=== PATIENT | male | born 1950 | race Caucasian/White ===

== ENCOUNTER 2020-01-21 23:53 | Inpatient (IN) | payer MEDICARE ==
[2020-01-22 00:50] LABS: #Eosinphils 0.1 thou/uL (0.0-0.7); #Lymphocytes 0.8 thou/uL (1.20-3.40); #Monocytes 0.5 thou/uL (0.11-0.59); #Neutrophils 5.3 thou/uL (1.40-6.50); %Basophils 0.2 % (0.0-1.0); %Eosinophils 1.4 % (0.0-10.0); %Lymphocytes 11.6 % (21.0-51.0); %Monocytes 7.7 % (0.0-10.0); %Neutrophils 79.1 % (42.0-75.0); Hemoglobin 12.7 g/dL (14.0-18.0); Mean Corpuscular HGB CONC 34.5 g/dL (32.0-36.0); Mean Corpuscular Hemoglobin 32.7 pg (27.0-31.0); Mean Corpuscular Volume 94.9 fL (78.0-98.0); Mean Platelet Volume 6.6 fL (7.4-10.4); Platelet Count 282 thou/uL (130-400); RBC Distribution Width 11.1 % (11.5-14.5); Red Blood Cell (RBC) Count 3.88 mill/uL (4.70-6.10); White Blood Cell (WBC) Count 6.7 thou/uL (4.8-10.8)
[2020-01-22 01:07] LABS: ALT (SGPT) 174 U/L (8-55); AST (SGOT) 182 U/L (5-34); Albumin 3.1 g/dL (3.4-4.8); Alkaline Phosphatase 64 U/L (40-110); Anion Gap 15 mmol/L (10-20); BUN (Urea Nitrogen) 17 mg/dL (8.4-25.7); Calc. Creatinine Clearance 0 mL/min (70-130); Calcium 8.4 mg/dL (7.8-10.44); Carbon Dioxide 27 mmol/L (23-31); Chloride 92 mmol/L (98-107); Globulin 3.3 g/dL (2.4-3.5); Glucose 119 mg/dL (80-115); Potassium 3.3 mmol/L (3.5-5.1); Protein, Total 6.4 g/dL (5.8-8.1); Sodium 131 mmol/L (136-145)
[2020-01-22 03:05] VITALS: BMI 26.3
--- NOTE | 2020-01-22 08:37 | RAD ---
EXAM: Chest one view: HISTORY: Covid positive, shortness of breath, low oxygen saturation at home COMPARISON: None FINDINGS: Heart size: Within normal limits. Lungs: Patchy interstitial alveolar and groundglass opacity changes particularly in the peripheral as pect of the right and left lung slightly more prominent on the right side evidence for bilateral Covid pneumonia. No pleural effusion. IMPRESSION: Evidence for bilateral Covid pneumonia.
[2020-01-22] MEDS ORDERED: FLU VACC QS2020-21(65YR UP)/PF 240 MCG/0.7 ML SYRINGE IM ONE (09:00)
[2020-01-22] MEDS ORDERED: Acetaminophen 325 MG TAB PO PRN ×2 (09:09→09:17)
[2020-01-22] MEDS ORDERED: Senokot S 8.6-50 MG TAB PO PRN (09:11)
[2020-01-22] MEDS ORDERED: Calcium Carbonate 500 MG ChewTAB PO PRN (09:11)
[2020-01-22] MEDS ORDERED: Bisacodyl 10 MG SUPP PR PRN (09:11)
[2020-01-22] MEDS ORDERED: Dexamethasone 4 mg/ml Vial SLOW IVP SCH (09:15)
[2020-01-22] MEDS ORDERED: Enoxaparin Sodium 40 MG/0.4 ML SYRINGE SC SCH (09:15)
--- NOTE | 2020-01-22 09:44 | PDOC.HHP ---
Hospitalist HPI - History of Present Illness Shortness of breath History of Present Illness: Patient is a 69-year-old male with COVID-19 diagnosed on 01/09 presented to the emergency room with worsening shortness of breath and low oxygen saturation. Over the last 2 weeks patient developed gradual worsening shortness of breath along with flulike symptoms. His symptom onset was on 01/07. He felt generally weak with fatigue, runny nose along with cough. Work-up was productive of scanty thick mucus. He also had myalgias along with fever and chills. He was evaluated at urgent care on 01/09 and was diagnosed with COVID-19. Over the last 3 to 4 days shortness of breath has been worsening. His O2 saturations was in 80s for which he presented to the emergency room. He denies any wheezing, chest pain, palpitations or syncope. He denies any recent travel or immobilization. No history of malignancy. In the emergency room his initial vital signs showed temperature 99.9, respiration 20, pulse rate of 80 with blood pressure 127/75 and O2 saturation of 86% on room air. He was placed on O2 supplementation. PAST MEDICAL HISTORY: Hypertension, insomnia, eczema PAST SURGICAL HISTORY: Hernia repair, colonoscopy ALLERGIES: No known drug allergies SOCIAL HISTORY: Currently lives at home with his family. Full code. Makes his own decision with the help of his family. Drinks alcohol socially. Denies any smoking or drug use FAMILY HISTORY: Father with lung cancer. Hospitalist ROS - Review of Systems Constitutional: reports: fever, chills, weakness, malaise Respiratory: reports: cough, shortness of breath, SOB with excertion, sputum. denies: dry, hemoptysis, pleuritic pain, wheezing, other Gastrointestinal: reports: diarrhea. denies: nausea, vomiting, abdominal pain, constipation, melena, hematochezia, other Genitourinary: denies: dysuria, frequency, incontinence, hematuria, retention, other Musculoskeletal: denies: neck pain, shoulder pain, arm pain, back pain, hand pain, leg pain, foot pain, other All other systems reviewed; all pertinent +/- noted in HPI/Subj - Medication Medications: Medication Instructions Recorded Confirmed Type Irbesartan 300 mg PO DAILY 12/18/15 01/22/20 History Aspirin [Ecotrin Regular Strength] 81 mg PO DAILY #30 tab 12/19/15 01/22/20 Rx Amlodipine Besylate [amLODIPine 5 mg PO DAILY 01/22/20 01/22/20 History Besylate] Bifidobacterium Infantis [Align] 4 mg PO QAM 01/22/20 01/22/20 History Eszopiclone 3 mg PO QAM 01/22/20 01/22/20 History Hydrochlorothiazide 25 mg PO DAILY 01/22/20 01/22/20 History Magnesium Oxide [Magnesium] 500 mg PO QAM 01/22/20 01/22/20 History [place]-3 Fatty Acids/Fish Oil 3,000 mg PO QAM 01/22/20 01/22/20 History [[place] 3 Fish Oil Softgel] Zinc 50 mg PO QAM 01/22/20 01/22/20 History - Exam General Appearance: ill appearing Eye: PERRL, anicteric sclera ENT: normocephalic atraumatic Neck: supple, symmetric, no JVD Heart: RRR, no gallops, no rubs, normal peripheral pulses Respiratory: no wheezes, normal chest expansion, rales, rhonchi, tachypneic Gastrointestinal: soft, normal bowel sounds, no guarding, no rigidity Extremities: no cyanosis, no clubbing Skin: normal turgor, no lesions Neurological: no new deficit Musculoskeletal: normal tone Psychiatric: normal affect, A&O x 3 Hospitalist Results - Labs Result Diagrams: 01/22/20 00:39 01/22/20 00:39 Lab results: WBC 6.7 thou/uL (4.8-10.8) 01/22/20 00:39 Hgb 12.7 g/dL (14.0-18.0) L 01/22/20 00:39 Hct 36.9 % (42.0-52.0) L 01/22/20 00:39 MCV 94.9 fL (78.0-98.0) 01/22/20 00:39 Plt Count 282 thou/uL (130-400) 01/22/20 00:39 Neutrophils % 79.1 % (42.0-75.0) H 01/22/20 00:39 Sodium 131 mmol/L (136-145) L 01/22/20 00:39 Potassium 3.3 mmol/L (3.5-5.1) L 01/22/20 00:39 Chloride 92 mmol/L (98-107) L 01/22/20 00:39 Carbon Dioxide 27 mmol/L (23-31) 01/22/20 00:39 BUN 17 mg/dL (8.4-25.7) 01/22/20 00:39 Creatinine 0.95 mg/dL (0.7-1.3) 12 00:39 Glucose 119 mg/dL (80-115) H 01/22/20 00:39 Calcium 8.4 mg/dL (7.8-10.44) 01/22/20 00:39 Total Bilirubin 1.0 mg/dL (0.2-1.2) 01/22/20 00:39 AST 182 U/L (5-34) H 01/22/20 00:39 ALT 174 U/L (8-55) H 01/22/20 00:39 Alkaline Phosphatase 64 U/L (40-110) 01/22/20 00:39 Troponin I 0.015 ng/mL (< 0.028) 01/22/20 00:39 Serum Total Protein 6.4 g/dL (5.8-8.1) 01/22/20 00:39 Albumin 3.1 g/dL (3.4-4.8) L 01/22/20 00:39 - EKG Interpretation EKG: Sinus rhythmreviewed by me - Radiology Interpretation Chest x-ray Status: image reviewed by me Additional Comment: Bilateral infiltrates consistent with COVID-19 pneumonia Hospitalist H&P A/P - Plan Plan: Acute hypoxic respiratory failure due to COVID-19 pneumoniasymptom onset 01/07 (patient positive on 01/09) Generalized weakness Hypertension Abnormal LFTs Hypokalemia/hyponatremia CKD stage II Chronic anemia probably due to nutritional deficiency Chronic insomnia Plan: Patient is currently admitted to medical floor. We will start him on O2 supplementation with IV Decadron 6 mg daily. Bronchodilators. Isolation for COVID-19. DVT and GI prophylaxis. Check inflammatory markers. Resume amlodipine. Replace potassium. Hold diuretics. Will discuss with infectious disease. A.m. labs. Monitor LFTs. Add Ensure.
[2020-01-22] MEDS ORDERED: Albuterol 200 PUFF (6.7GM INHALER) INH PRN (09:57)
[2020-01-22 10:15] LABS: Phosphorus 2.7 mg/dL (2.3-4.7)
[2020-01-22 10:16] LABS: ALT (SGPT) 182 U/L (8-55); AST (SGOT) 162 U/L (5-34); Albumin 3.2 g/dL (3.4-4.8); Alkaline Phosphatase 71 U/L (40-110); Bilirubin, Direct 0.5 mg/dL (0.1-0.3); Protein, Total 6.6 g/dL (5.8-8.1)
[2020-01-22 10:17] LABS: CRP (Inflammatory) 22.14 mg/dL (= or < 0.5); Magnesium 2.5 mg/dL (1.6-2.6)
[2020-01-22 10:21] LABS: Troponin I 0.025 ng/mL (< 0.028)
[2020-01-22] MEDS ORDERED: Loperamide HCl 2 MG CAP PO PRN (10:21)
[2020-01-22] MEDS: Albuterol 200 PUFF (6.7GM INHALER) INH SCH ×4 (10:53→22:38)
[2020-01-22] MEDS: Potassium Chloride 20 MEQ TAB PO SCH ×2 (10:55→16:40)
[2020-01-22] MEDS: Zinc Sulfate 220 MG CAP PO SCH (20:44)
[2020-01-22] MEDS: Enoxaparin Sodium 40 MG/0.4 ML SYRINGE SC SCH (20:44)
[2020-01-22] MEDS: Famotidine 20 MG TAB PO SCH (20:44)
[2020-01-23] MEDS: Albuterol 200 PUFF (6.7GM INHALER) INH SCH ×6 (03:26→23:30)
[2020-01-23 06:03] LABS: #Lymphocytes 0.6 thou/uL (1.20-3.40); #Monocytes 0.6 thou/uL (0.11-0.59); #Neutrophils 7.5 thou/uL (1.40-6.50); %Basophils 0.1 % (0.0-1.0); %Eosinophils 0.2 % (0.0-10.0); %Lymphocytes 6.3 % (21.0-51.0); %Monocytes 7.2 % (0.0-10.0); %Neutrophils 86.3 % (42.0-75.0); Hemoglobin 13.2 g/dL (14.0-18.0); Mean Corpuscular HGB CONC 33.9 g/dL (32.0-36.0); Mean Corpuscular Hemoglobin 33.5 pg (27.0-31.0); Mean Platelet Volume 6.5 fL (7.4-10.4); Platelet Count 369 thou/uL (130-400); RBC Distribution Width 11.2 % (11.5-14.5); Red Blood Cell (RBC) Count 3.94 mill/uL (4.70-6.10); White Blood Cell (WBC) Count 8.7 thou/uL (4.8-10.8)
[2020-01-23 06:25] LABS: ALT (SGPT) 180 U/L (8-55); AST (SGOT) 107 U/L (5-34); Albumin 3.4 g/dL (3.4-4.8); Alkaline Phosphatase 69 U/L (40-110); Anion Gap 18 mmol/L (10-20); BUN (Urea Nitrogen) 20 mg/dL (8.4-25.7); Bilirubin, Total 0.6 mg/dL (0.2-1.2); Calc. Creatinine Clearance 94 mL/min (70-130); Calcium 8.7 mg/dL (7.8-10.44); Carbon Dioxide 26 mmol/L (23-31); Chloride 98 mmol/L (98-107); Globulin 3.5 g/dL (2.4-3.5); Glucose 149 mg/dL (80-115); Potassium 3.6 mmol/L (3.5-5.1); Protein, Total 6.9 g/dL (5.8-8.1); Sodium 138 mmol/L (136-145)
[2020-01-23] MEDS: Multivit, Therapeutic 1 TAB PO SCH (08:04)
[2020-01-23] MEDS: Famotidine 20 MG TAB PO SCH ×2 (08:04→19:31)
[2020-01-23] MEDS: Ascorbic Acid 500 mg Chewable Tablet PO SCH (08:05)
[2020-01-23] MEDS: Enoxaparin Sodium 40 MG/0.4 ML SYRINGE SC SCH ×2 (08:05→19:31)
[2020-01-23] MEDS: Amlodipine 5 MG TAB PO SCH (08:05)
[2020-01-23] MEDS: Dexamethasone 4 mg/ml Vial SLOW IVP SCH (08:06)
[2020-01-23] MEDS ORDERED: Aspirin 81 mg Enteric Coated Tablet PO SCH (09:00)
[2020-01-23] MEDS ORDERED: Non-Formulary Item 1 EACH (Eszopiclone [Eszopiclone] 3 MG Tablet) PO SCH (09:00)
[2020-01-23] MEDS ORDERED: Aspirin 325 mg Enteric Coated Tablet PO SCH (09:00)
[2020-01-23] MEDS: Calcium Carbonate 600 MG + Vit D TAB PO SCH (16:28)
--- NOTE | 2020-01-23 18:03 | PDOC.HOSPP ---
- Subjective Encounter Date: 01/23/20 Encounter Time: 11:30 Subjective: Patient seen and examined for respiratory failure due to COVID-19. Shortness of breath improving. Mild dry cough. Denies any fever, chills, nausea or diarrhea. - Objective Vital Signs & Weight: Vital Signs (12 hours) Temp Pulse Resp BP Pulse Ox 01/23/20 16:00 96 01/23/20 12:00 18 95 01/23/20 08:05 65 01/23/20 08:00 98.2 F 68 18 144/72 H 98 Weight Admit Weight 210 lb 12.16 oz Weight 210 lb 12.16 oz Result Diagrams: 01/23/20 05:37 01/23/20 05:37 Additional Labs: Abnormal Lab Results - Last 48 hrs 01/22/20 00:39: Sodium 131 L, Potassium 3.3 L, Chloride 92 L, AST 182 H, ALT 174 H, Albumin 3.1 L, Albumin/Globulin Ratio 0.9 L 01/22/20 00:39: RBC 3.88 L, Hgb 12.7 L, Hct 36.9 L, MCH 32.7 H, RDW 11.1 L, MPV 6.6 L, Neutrophils % 79.1 H, Lymphocytes % 11.6 L, Lymphocytes # 0.8 L 01/22/20 09:42: C-Reactive Protein 22.14 H 01/22/20 09:42: Ferritin 970.98 H 01/22/20 09:42: D-Dimer 5.84 H 01/22/20 09:42: Direct Bilirubin 0.5 H, AST 162 H, ALT 182 H, Albumin 3.2 L 01/23/20 05:37: AST 107 H, ALT 180 H, Albumin/Globulin Ratio 1.0 L 01/23/20 05:37: RBC 3.94 L, Hgb 13.2 L, Hct 39.1 L, MCV 99.0 H, MCH 33.5 H, RDW 11.2 L, MPV 6.5 L, Neutrophils % 86.3 H, Lymphocytes % 6.3 L, Neutrophils # 7.5 H, Lymphocytes # 0.6 L, Monocytes # 0.6 H Radiology Reviewed by me: Yes (Chest x-raybilateral infiltrate) Hospitalist ROS - Review of Systems Cardiovascular: denies: chest pain, palpitations, orthopnea, paroxysmal noc. dyspnea, edema, light headedness, other Gastrointestinal: denies: nausea, vomiting, abdominal pain, diarrhea, constipation, melena, hematochezia, other - Medication Medications: Active Medications Generic Name Dose Route Start Last Admin Trade Name Freq PRN Reason Stop Dose Admin Albuterol Sulfate 2 puff 01/22/20 10:30 01/23/20 14:28 Albuterol 200 Puff (6.7gm Inhaler) INH 2 puff [id number] IMKE Administration Amlodipine Besylate 5 mg 01/23/20 09:00 01/23/20 08:05 Amlodipine 5 Mg Tab PO 5 mg DAILY MIKE Administration Ascorbic Acid 1,000 mg 01/23/20 09:00 01/23/20 08:05 Ascorbic Acid 500 Mg Chewable Tablet PO 1,000 mg DAILY MIKE Administration Calcium/Vitamin D 1 tab 01/23/20 17:00 01/23/20 16:28 Calcium Carbonate 600 Mg + Vit D Tab PO 1 tab BID-WM MIKE Administration Dexamethasone 6 mg 01/23/20 09:00 01/23/20 08:06 Dexamethasone 4 Mg/Ml Vial SLOW IVP 6 mg DAILY MIKE Administration Enoxaparin Sodium 40 mg 01/22/20 21:00 01/23/20 08:05 Enoxaparin Sodium 40 Mg/0.4 Ml Syringe SC 40 mg 0900,2100 MIKE Administration Famotidine 20 mg 01/22/20 21:00 01/23/20 08:04 Famotidine 20 Mg Tab PO 20 mg BID MIKE Administration Multivitamins 1 tab 01/23/20 09:00 01/23/20 08:04 Multivit, Therapeutic 1 Tab PO 1 tab DAILY MIKE Administration Sodium Chloride 10 ml 01/22/20 09:11 01/23/20 08:06 Flush - Normal Saline 10 Ml Syringe IVF 10 ml PRN PRN Administration Saline Flush Zinc Sulfate 220 mg 01/22/20 21:00 01/22/20 20:44 Zinc Sulfate 220 Mg Cap PO 220 mg HS MIKE Administration - Exam General Appearance: NAD Neck: supple, no JVD Heart: RRR, no gallops Respiratory: no wheezes, rales, rhonchi Gastrointestinal: soft, non-distended Extremities: no cyanosis Neurological: no new deficit Psychiatric: A&O x 3 Hosp A/P - Plan DVT proph w/lovenox, DVT proph w/SCDs Acute hypoxic respiratory failure due to COVID-19 pneumoniasymptom onset 01/07 (patient positive on 01/09) Generalized weakness Hypertension Abnormal LFTs Hypokalemia/hyponatremia CKD stage II Chronic anemia probably due to nutritional deficiency Chronic insomnia Plan: Continue O2 supplementation. Continue bronchodilators. Continue dexamethasone. Continue Lovenox for DVT prophylaxis. Continue vitamin C with zinc. Patient does not qualify for remdesivir. Will check inflammatory markers in a.m. Continue COVID-19 isolation. Discharge in 1 to 2 days if okay with infectious disease/if patient remains stable.
[2020-01-23] MEDS: Zinc Sulfate 220 MG CAP PO SCH (19:31)
[2020-01-24] MEDS: Albuterol 200 PUFF (6.7GM INHALER) INH SCH ×6 (02:00→23:16)
[2020-01-24 06:06] LABS: #Lymphocytes 0.9 thou/uL (1.20-3.40); #Monocytes 0.7 thou/uL (0.11-0.59); #Neutrophils 7.1 thou/uL (1.40-6.50); %Basophils 0.1 % (0.0-1.0); %Eosinophils 0.6 % (0.0-10.0); %Lymphocytes 10.1 % (21.0-51.0); %Monocytes 8.5 % (0.0-10.0); %Neutrophils 80.7 % (42.0-75.0); Hemoglobin 11.5 g/dL (14.0-18.0); Mean Corpuscular HGB CONC 33.7 g/dL (32.0-36.0); Mean Corpuscular Hemoglobin 32.7 pg (27.0-31.0); Mean Corpuscular Volume 97.1 fL (78.0-98.0); Mean Platelet Volume 6.4 fL (7.4-10.4); Platelet Count 383 thou/uL (130-400); RBC Distribution Width 11.3 % (11.5-14.5); Red Blood Cell (RBC) Count 3.53 mill/uL (4.70-6.10); White Blood Cell (WBC) Count 8.7 thou/uL (4.8-10.8)
[2020-01-24 06:17] LABS: ALT (SGPT) 131 U/L (8-55); AST (SGOT) 60 U/L (5-34); Albumin 2.9 g/dL (3.4-4.8); Alkaline Phosphatase 52 U/L (40-110); Anion Gap 14 mmol/L (10-20); BUN (Urea Nitrogen) 26 mg/dL (8.4-25.7); Bilirubin, Total 0.4 mg/dL (0.2-1.2); CRP (Inflammatory) 6.41 mg/dL (= or < 0.5); Calc. Creatinine Clearance 98 mL/min (70-130); Calcium 8.1 mg/dL (7.8-10.44); Carbon Dioxide 28 mmol/L (23-31); Chloride 99 mmol/L (98-107); Globulin 2.9 g/dL (2.4-3.5); Glucose 116 mg/dL (80-115); Potassium 3.9 mmol/L (3.5-5.1); Protein, Total 5.8 g/dL (5.8-8.1); Sodium 137 mmol/L (136-145)
[2020-01-24] MEDS: Dexamethasone 4 mg/ml Vial SLOW IVP SCH (08:56)
[2020-01-24] MEDS: Enoxaparin Sodium 40 MG/0.4 ML SYRINGE SC SCH (08:56)
[2020-01-24] MEDS: Calcium Carbonate 600 MG + Vit D TAB PO SCH ×2 (08:57→18:08)
[2020-01-24] MEDS: Amlodipine 5 MG TAB PO SCH (08:57)
[2020-01-24] MEDS: Famotidine 20 MG TAB PO SCH ×2 (08:57→19:39)
[2020-01-24] MEDS: Multivit, Therapeutic 1 TAB PO SCH (08:57)
[2020-01-24] MEDS: Ascorbic Acid 500 mg Chewable Tablet PO SCH (08:57)
[2020-01-24 09:05] VITALS: TEMP 97.9
[2020-01-24] MEDS ORDERED: diphenhydrAMINE 25 MG CAP PO PRN (14:13)
--- NOTE | 2020-01-24 18:51 | PDOC.HOSPP ---
- Subjective Encounter Date: 01/24/20 Encounter Time: 14:00 Subjective: Patient seen and examined for respiratory failure due to COVID-19 pneumonia. Feels generally weak. Did not sleep well last night. Mild cough. Short of breath on [id number] exertion. - Objective Vital Signs & Weight: Vital Signs (12 hours) Temp Pulse Resp BP Pulse Ox 01/24/20 09:03 97.9 F 58 L 20 130/78 97 01/24/20 08:57 65 01/24/20 08:00 97 Weight Admit Weight 210 lb 12.16 oz Weight 210 lb 12.16 oz Result Diagrams: 01/24/20 05:24 01/24/20 05:24 Additional Labs: Abnormal Lab Results - Last 48 hrs 01/23/20 05:37: AST 107 H, ALT 180 H, Albumin/Globulin Ratio 1.0 L 01/23/20 05:37: RBC 3.94 L, Hgb 13.2 L, Hct 39.1 L, MCV 99.0 H, MCH 33.5 H, RDW 11.2 L, MPV 6.5 L, Neutrophils % 86.3 H, Lymphocytes % 6.3 L, Neutrophils # 7.5 H, Lymphocytes # 0.6 L, Monocytes # 0.6 H 01/24/20 05:24: BUN 26 H, AST 60 H, ALT 131 H, C-Reactive Protein 6.41 H, Albumin 2.9 L, Albumin/Globulin Ratio 1.0 L 01/24/20 05:24: Ferritin 539.87 H 01/24/20 05:24: RBC 3.53 L, Hgb 11.5 L, Hct 34.3 L, MCH 32.7 H, RDW 11.3 L, MPV 6.4 L, Neutrophils % 80.7 H, Lymphocytes % 10.1 L, Neutrophils # 7.1 H, Lymphocytes # 0.9 L, Monocytes # 0.7 H 01/24/20 05:24: D-Dimer 2.38 H Radiology Reviewed by me: Yes (Chest x-raybilateral pneumonia) Hospitalist ROS - Review of Systems Respiratory: reports: cough, shortness of breath, SOB with excertion. denies: dry, hemoptysis, pleuritic pain, sputum, wheezing, other Cardiovascular: denies: chest pain, palpitations, orthopnea, paroxysmal noc. dyspnea, edema, light headedness, other - Medication Medications: Active Medications Generic Name Dose Route Start Last Admin Trade Name Freq PRN Reason Stop Dose Admin Acetaminophen 650 mg 01/22/20 09:17 01/24/20 02:24 Acetaminophen 325 Mg Tab PO 650 mg Q6H PRN Administration Headache/Fever or Mild Pain Albuterol Sulfate 2 puff 01/22/20 10:30 01/24/20 18:11 Albuterol 200 Puff (6.7gm Inhaler) INH 2 puff [id number] MIKE Administration Amlodipine Besylate 5 mg 01/23/20 09:00 01/24/20 08:57 Amlodipine 5 Mg Tab PO 5 mg DAILY MIKE Administration Ascorbic Acid 1,000 mg 01/23/20 09:00 01/24/20 08:57 Ascorbic Acid 500 Mg Chewable Tablet PO 1,000 mg DAILY MIKE Administration Calcium/Vitamin D 1 tab 01/23/20 17:00 01/24/20 18:08 Calcium Carbonate 600 Mg + Vit D Tab PO 1 tab BID-WM MIKE Administration Dexamethasone 6 mg 01/23/20 09:00 01/24/20 08:56 Dexamethasone 4 Mg/Ml Vial SLOW IVP 6 mg DAILY MIKE Administration Famotidine 20 mg 01/22/20 21:00 01/24/20 08:57 Famotidine 20 Mg Tab PO 20 mg BID MIKE Administration Multivitamins 1 tab 01/23/20 09:00 01/24/20 08:57 Multivit, Therapeutic 1 Tab PO 1 tab DAILY MIKE Administration Sodium Chloride 10 ml 01/22/20 09:11 01/23/20 08:06 Flush - Normal Saline 10 Ml Syringe IVF 10 ml PRN PRN Administration Saline Flush Zinc Sulfate 220 mg 01/22/20 21:00 01/23/20 19:31 Zinc Sulfate 220 Mg Cap PO 220 mg HS MIKE Administration - Exam General Appearance: ill appearing Neck: supple, no JVD Heart: RRR, no gallops Respiratory: no wheezes, rales, rhonchi Gastrointestinal: soft, non-tender, normal bowel sounds, no guarding, no rigidity Extremities: no cyanosis, no clubbing Neurological: no new deficit Hosp A/P - Plan DVT proph w/lovenox, DVT proph w/SCDs Acute hypoxic respiratory failure due to COVID-19 pneumoniasymptom onset 01/07 (patient positive on 01/09) Generalized weakness Hypertension Abnormal LFTs Hypokalemia/hyponatremia CKD stage II Chronic anemia probably due to nutritional deficiency Chronic insomnia Obstructive sleep apnea on CPAP Plan: Case discussed with infectious disease. Inflammatory markers improving. Continue dexamethasone. Continue O2 supplementation. Resume home CPAP. Home O2 set up. Continue other medications as above. Discharge in 24 hours if stable.
[2020-01-24] MEDS: Zinc Sulfate 220 MG CAP PO SCH (19:39)
[2020-01-25] MEDS: Albuterol 200 PUFF (6.7GM INHALER) INH SCH ×4 (02:00→15:16)
[2020-01-25 06:29] LABS: #Monocytes 0.7 thou/uL (0.11-0.59); #Neutrophils 5.5 thou/uL (1.40-6.50); %Basophils 0.4 % (0.0-1.0); %Eosinophils 0.6 % (0.0-10.0); %Lymphocytes 14.2 % (21.0-51.0); %Neutrophils 74.8 % (42.0-75.0); Hemoglobin 11.7 g/dL (14.0-18.0); Mean Corpuscular HGB CONC 33.5 g/dL (32.0-36.0); Mean Corpuscular Hemoglobin 32.5 pg (27.0-31.0); Mean Corpuscular Volume 97.2 fL (78.0-98.0); Mean Platelet Volume 6.1 fL (7.4-10.4); Platelet Count 419 thou/uL (130-400); RBC Distribution Width 11.3 % (11.5-14.5); White Blood Cell (WBC) Count 7.4 thou/uL (4.8-10.8)
[2020-01-25 07:14] LABS: ALT (SGPT) 147 U/L (8-55); AST (SGOT) 78 U/L (5-34); Albumin 3.1 g/dL (3.4-4.8); Alkaline Phosphatase 56 U/L (40-110); Anion Gap 16 mmol/L (10-20); BUN (Urea Nitrogen) 26 mg/dL (8.4-25.7); Bilirubin, Total 0.4 mg/dL (0.2-1.2); Calc. Creatinine Clearance 101 mL/min (70-130); Calcium 8.4 mg/dL (7.8-10.44); Carbon Dioxide 27 mmol/L (23-31); Chloride 100 mmol/L (98-107); Globulin 2.6 g/dL (2.4-3.5); Glucose 106 mg/dL (80-115); Potassium 4.2 mmol/L (3.5-5.1); Protein, Total 5.7 g/dL (5.8-8.1); Sodium 139 mmol/L (136-145)
[2020-01-25] MEDS: Ascorbic Acid 500 mg Chewable Tablet PO SCH (08:50)
[2020-01-25] MEDS: Famotidine 20 MG TAB PO SCH (08:50)
[2020-01-25] MEDS: Calcium Carbonate 600 MG + Vit D TAB PO SCH (08:50)
[2020-01-25] MEDS: Multivit, Therapeutic 1 TAB PO SCH (08:50)
[2020-01-25] MEDS: Amlodipine 5 MG TAB PO SCH (08:50)
[2020-01-25] MEDS: Dexamethasone 4 mg/ml Vial SLOW IVP SCH (08:51)
[2020-01-25] MEDS ORDERED: Enoxaparin Sodium 40 MG/0.4 ML SYRINGE SC SCH (09:00)
[2020-01-25 09:11] VITALS: BP 147/74
--- NOTE | 2020-01-25 18:06 | PDOC.DS.DS ---
Provider - Provider Date of Admission: 01/22/20 00:58 Date of Discharge: 01/25/20 Admitting Provider: Gama Rodriguez DO Consultations: None Primary Care Physician: Unknown Course - Hospital Course Hospital Course: Patient is a 69-year-old male with COVID-19 diagnosed on 01/09 presented to the emergency room with worsening shortness of breath along with low oxygen saturation. His O2 saturation was in 80s. Short of breath was worse on minimal exertion. Please refer to the history and physical dated 01/21 for further details. The patient was admitted to the hospital with a diagnosis of acute hypoxic respiratory failure due to COVID-19 pneumonia. He was started on O2 supplementation with bronchodilators and Decadron. He was placed on isolation. The case was discussed with infectious disease who agreed with the above treatment. Patient did not qualify for remdesivir. Patient's inflammatory markers have gradually improved. He is currently on room air. Home oxygen will be arranged due to high risk of decompensation. He appears stable for discharge. The case was discussed with infectious disease again who agreed with above plan of care. Final diagnosis: Acute hypoxic respiratory failure due to COVID-19 pneumoniasymptom onset 01/07 (patient positive on 01/09) Generalized weakness Hypertension Abnormal LFTs Hypokalemia/hyponatremia CKD stage II Chronic anemia probably due to nutritional deficiency Chronic insomnia Obstructive sleep apnea on CPAP Resuscitation Status: 01/22/20 09:11 Resuscitation Status Routine Resuscitation Status: FULL: Full Resuscitation - Labs Lab Results: 01/25/20 06:02 01/25/20 05:58 Abnormal Lab Results - Last 48 hrs 01/24/20 05:24: BUN 26 H, AST 60 H, ALT 131 H, C-Reactive Protein 6.41 H, Albumin 2.9 L, Albumin/Globulin Ratio 1.0 L 01/24/20 05:24: Ferritin 539.87 H 01/24/20 05:24: RBC 3.53 L, Hgb 11.5 L, Hct 34.3 L, MCH 32.7 H, RDW 11.3 L, MPV 6.4 L, Neutrophils % 80.7 H, Lymphocytes % 10.1 L, Neutrophils # 7.1 H, Lymphocytes # 0.9 L, Monocytes # 0.7 H 01/24/20 05:24: D-Dimer 2.38 H 01/25/20 05:58: BUN 26 H, AST 78 H, ALT 147 H, C-Reactive Protein 3.40 H, Serum Total Protein 5.7 L, Albumin 3.1 L 01/25/20 06:02: Ferritin 513.74 H 01/25/20 06:02: RBC 3.60 L, Hgb 11.7 L, Hct 35.0 L, MCH 32.5 H, RDW 11.3 L, Plt Count 419 H, MPV 6.1 L, Lymphocytes % 14.2 L, Lymphocytes # 1.0 L, Monocytes # 0.7 H 01/25/20 06:02: D-Dimer 2.47 H - Physical Exam Vitals: Vital Signs (12 hours) Temp Pulse Resp BP Pulse Ox 01/25/20 09:11 97.9 F 60 18 147/74 H 98 01/25/20 08:50 58 L 01/25/20 08:00 98 Weight Admit Weight 210 lb 12.16 oz Weight 210 lb 12.16 oz Physical Exam: The patient was evaluated on the day of discharge. Plan - Discharge Medications Prescriptions: Dexamethasone 6 mg PO DAILY #7 tablet Famotidine [Pepcid] 20 mg PO BID #20 tab Albuterol Sulfate HFA (OR) [Proventil Hfa (or)] 2 puff INH Q4H #1 inh Ascorbic Acid [Vitamin C] 1,000 mg PO DAILY #30 tablet Zinc Sulfate 220 mg PO DAILY #30 cap Home Medications: Medication Instructions Recorded Confirmed Type Irbesartan 300 mg PO DAILY 12/18/15 01/22/20 History Aspirin [Ecotrin Regular Strength] 81 mg PO DAILY #30 tab 12/19/15 01/22/20 Rx Amlodipine Besylate [amLODIPine 5 mg PO DAILY 01/22/20 01/22/20 History Besylate] Bifidobacterium Infantis [Align] 4 mg PO QAM 01/22/20 01/22/20 History Eszopiclone 3 mg PO QAM 01/22/20 01/22/20 History Hydrochlorothiazide 25 mg PO DAILY 01/22/20 01/22/20 History Magnesium Oxide [Magnesium] 500 mg PO QAM 01/22/20 01/22/20 History [place]-3 Fatty Acids/Fish Oil 3,000 mg PO QAM 01/22/20 01/22/20 History [[place] 3 Fish Oil Softgel] Albuterol Sulfate HFA (OR) 2 puff INH Q4H #1 inh 01/25/20 Rx [Proventil Hfa (or)] Ascorbic Acid [Vitamin C] 1,000 mg PO DAILY #30 tablet 01/25/20 Rx Dexamethasone 6 mg PO DAILY #7 tablet 01/25/20 Rx Famotidine [Pepcid] 20 mg PO BID #20 tab 01/25/20 Rx Zinc Sulfate 220 mg PO DAILY #30 cap 01/25/20 Rx Allergies: No Known Drug Allergies Allergy (Verified 12/18/15 21:52) - Follow up Plan Referrals: [facility] [Outside] Dylan Shankar MD [Active] - 7 Days Maximilian Pitt MD [Active] - 7 Days Disposition: HOME Quality - Care Measures CORE MEASURES:: N/A
[2020-01-25] MEDS ORDERED: Zolpidem Tartrate 5 MG TAB PO SCH (21:00)
== END 2020-01-25 18:08 | disposition home or self-care (01) | DRG 177 ==
LOC: ERS 23:53 → T4-A 01-22 00:58
PROVIDERS: ADMIT Family Medicine; ATTEND Internal Medicine
PROC: 8E0ZXY6 Isolation (ICD-10-PCS; principal; 2020-01-22)
PROC: 5A09357 Assistance with Respiratory Ventilation, Less than 24 Consecutive Hours, Continuous Positive Airway Pressure (ICD-10-PCS; 2020-01-25)
DX: U07.1 COVID-19 (principal); J12.89 Other viral pneumonia; J96.01 Acute respiratory failure with hypoxia; E87.1 Hypo-osmolality and hyponatremia; N18.2 Chronic kidney disease, stage 2 (mild); D53.9 Nutritional anemia, unspecified; R94.5 Abnormal results of liver function studies; F51.04 Psychophysiologic insomnia; R53.1 Weakness; I12.9 Hypertensive chronic kidney disease with stage 1 through stage 4 chronic kidney disease, or unspecified chronic kidney disease; G47.33 Obstructive sleep apnea (adult) (pediatric); E87.6 Hypokalemia; G47.00 Insomnia, unspecified; Z98.890 Other specified postprocedural states
CPT/HCPCS: 36415; 71045; 80053; 82728; 83735; 84100; 84484; 85025; 85379; 86140; 93005; J1100; J1650

== ENCOUNTER 2020-05-31 15:13 | Outpatient (CLI) | payer MEDICARE, OTHER | END 2020-05-31 15:14 | disposition home or self-care (01) | LOC: BICRAD 15:13 | PROVIDERS: ATTEND Family Medicine | DX: U07.1 COVID-19 (principal); J12.82 Pneumonia due to coronavirus disease 2019 | CPT/HCPCS: 71046 ==